=== PATIENT | male | born 1960 | race African-American/Black ===

== ENCOUNTER 2017-07-02 20:57 | Observation (INO) | payer OTHER ==
[2017-07-02] MEDS ORDERED: NITROGLYCERIN OINT 1 INCH/GM PACKET TOPICAL STA (21:22)
[2017-07-02] MEDS ORDERED: ASPIRIN 81 MG PO STA (21:22)
--- NOTE | 2017-07-02 21:25 | ED ---
General Adult HPI - General Chief complaint: Chest Pain Stated complaint: Chest Pain Time Seen by Provider: 07/02/17 21:10 Source: patient, EMS, RN notes reviewed Mode of arrival: EMS Limitations: no limitations - History of Present Illness Initial comments: Patient is a pleasant 56-year-old male presenting to the emergency department chest discomfort. Patient has had several episodes over the past couple of days. Discomfort feels he can ache. Discomfort has been mostly mild and is extremely mild at this point, rated 1/10. Patient has been taking some nitroglycerin with improvement of symptoms. Symptoms do seem to be exertional. No associated dyspnea or nausea or diaphoresis. Patient does have a cardiac history of with stent and is unclear if symptoms feel similar or not. Patient is currently at [facility] for rehab for cocaine and heroin use. - Related Data Home Medications Medication Instructions Recorded Confirmed Acetaminophen Tab [Tylenol Tab] 650 mg PO Q4H PRN 07/02/17 07/02/17 Calcium 1000mg/Magnesium 500mg 1 tab PO TID PRN 07/02/17 07/02/17 Clopidogrel [Plavix] 75 mg PO HS@2200 07/02/17 07/02/17 Multivitamins, Thera [Multivitamin 1 tab PO DAILY 07/02/17 07/02/17 (formulary)] Ondansetron HCl [Zofran] 8 mg PO Q6H PRN 07/02/17 07/02/17 Ondansetron [Zofran] 4 mg IM Q6H PRN 07/02/17 07/02/17 Ranitidine HCl [Zantac] 150 mg PO HS@2200 07/02/17 07/02/17 Thiamine [Vitamin B-1] 100 mg PO DAILY 07/02/17 07/02/17 amLODIPine [Norvasc] 10 mg PO DAILY@0600 07/02/17 07/02/17 busPIRone HCl [Buspar] 10 mg PO TID PRN 07/02/17 07/02/17 traZODone HCL 50 - 150 mg PO HS 07/02/17 07/02/17 Allergies Allergy/AdvReac Type Severity Reaction Status Date / Time No Known Allergies Allergy Verified 07/02/17 21:06 Review of Systems ROS Statement: Those systems with pertinent positive or pertinent negative responses have been documented in the HPI. ROS Other: All systems not noted in ROS Statement are negative. Constitutional: Denies: fever Eyes: Denies: eye pain ENT: Denies: ear pain Respiratory: Denies: cough Cardiovascular: Reports: chest pain Endocrine: Denies: fatigue Gastrointestinal: Denies: abdominal pain Genitourinary: Denies: dysuria Musculoskeletal: Denies: back pain Skin: Denies: rash Neurological: Denies: weakness Past Medical History Past Medical History: Hyperlipidemia, Hypertension, Myocardial Infarction ([place]) History of Any Multi-Drug Resistant Organisms: None Reported Past Surgical History: Heart Catheterization With Stent Past Psychological History: No Psychological Hx Reported Smoking Status: Current every day smoker Past Alcohol Use History: None Reported Past Drug Use History: Cocaine, Heroin General Exam Limitations: no limitations General appearance: alert, in no apparent distress Head exam: Present: atraumatic Eye exam: Present: normal appearance, PERRL ENT exam: Present: normal oropharynx Neck exam: Present: normal inspection Respiratory exam: Present: normal lung sounds bilaterally. Absent: chest wall tenderness Cardiovascular Exam: Present: regular rate, normal rhythm Expanded Peripheral pulses: 2+: Radial (R), Radial (L), Dorsalis Pedis (R), Dorsalis Pedis (L) GI/Abdominal exam: Present: soft. Absent: tenderness Extremities exam: Present: normal inspection. Absent: pedal edema, calf tenderness Neurological exam: Present: alert Psychiatric exam: Present: normal affect, normal mood Skin exam: Present: normal color Course Vital Signs 07/02/17 07/02/17 07/02/17 21:03 21:39 23:05 Temperature 99.2 F Pulse Rate 81 89 88 Respiratory 18 18 18 Rate Blood Pressure 164/101 159/106 162/96 O2 Sat by Pulse 97 98 99 Oximetry EKG Findings - EKG Comments: EKG Findings:: Normal sinus rhythm 77. NJ 178. QRS 88. QT 360. QTC 47. Normal axis. LVH. Nonspecific T waves. Some motion artifact is present. Medical Decision Making - Medical Decision Making Patient reevaluated and resting comfortably in bed. Patient did have some nausea however that improved with Zofran. Patient now complains of a headache that he has had in the back of his head and neck for the past several days. Patient requests medication for this and will be provided Tylenol. Patient was updated on results and plan. Case was crusted detail with practitioner Roman, who will admit for Dr. Weber, covering for hospital call. - Lab Data Result diagrams: 07/02/17 21:20 07/02/17 21:20 Lab Results 07/02/17 07/02/17 07/02/17 Range/Units 21:20 21:20 21:20 WBC 9.6 (3.8-10.6) k/uL RBC 5.19 (4.30-5.90) m/uL Hgb 13.4 (13.0-17.5) gm/dL Hct 42.0 (39.0-53.0) % MCV 80.9 (80.0-100.0) fL MCH 25.9 (25.0-35.0) pg MCHC 32.0 (31.0-37.0) g/dL RDW 15.3 (11.5-15.5) % Plt Count 291 (150-450) k/uL Neutrophils % 58 % Lymphocytes % 33 % Monocytes % 5 % Eosinophils % 1 % Basophils % 0 % Neutrophils # 5.6 (1.3-7.7) k/uL Lymphocytes # 3.2 (1.0-4.8) k/uL Monocytes # 0.5 (0-1.0) k/uL Eosinophils # 0.1 (0-0.7) k/uL Basophils # 0.0 (0-0.2) k/uL PT (9.0-12.0) sec INR (<1.2) APTT (22.0-30.0) sec Sodium 144 (137-145) mmol/L Potassium 4.1 (3.5-5.1) mmol/L Chloride 110 H (98-107) mmol/L Carbon Dioxide 25 (22-30) mmol/L Anion Gap 9 mmol/L BUN 25 H (9-20) mg/dL Creatinine 1.08 (0.66-1.25) mg/dL Est GFR (CKD-EPI)AfAm 88 (>60 ml/min/1.73 sqM) Est GFR (CKD-EPI)NonAf 76 (>60 ml/min/1.73 sqM) Glucose 86 (74-99) mg/dL Calcium 9.6 (8.4-10.2) mg/dL Magnesium 1.9 (1.6-2.3) mg/dL Total Bilirubin 0.4 (0.2-1.3) mg/dL AST 17 (17-59) U/L ALT 30 (21-72) U/L Alkaline Phosphatase 104 (38-126) U/L Total Creatine Kinase 107 (55-170) U/L CK-MB (CK-2) 0.9 (0.0-2.4) ng/mL CK-MB (CK-2) Rel Index 0.8 Troponin I <0.012 (0.000-0.034) ng/mL Total Protein 7.2 (6.3-8.2) g/dL Albumin 3.5 (3.5-5.0) g/dL 07/02/17 Range/Units 21:20 WBC (3.8-10.6) k/uL RBC (4.30-5.90) m/uL Hgb (13.0-17.5) gm/dL Hct (39.0-53.0) % MCV (80.0-100.0) fL MCH (25.0-35.0) pg MCHC (31.0-37.0) g/dL RDW (11.5-15.5) % Plt Count (150-450) k/uL Neutrophils % % Lymphocytes % % Monocytes % % Eosinophils % % Basophils % % Neutrophils # (1.3-7.7) k/uL Lymphocytes # (1.0-4.8) k/uL Monocytes # (0-1.0) k/uL Eosinophils # (0-0.7) k/uL Basophils # (0-0.2) k/uL PT 10.8 (9.0-12.0) sec INR 1.1 (<1.2) APTT 22.4 (22.0-30.0) sec Sodium (137-145) mmol/L Potassium (3.5-5.1) mmol/L Chloride (98-107) mmol/L Carbon Dioxide (22-30) mmol/L Anion Gap mmol/L BUN (9-20) mg/dL Creatinine (0.66-1.25) mg/dL Est GFR (CKD-EPI)AfAm (>60 ml/min/1.73 sqM) Est GFR (CKD-EPI)NonAf (>60 ml/min/1.73 sqM) Glucose (74-99) mg/dL Calcium (8.4-10.2) mg/dL Magnesium (1.6-2.3) mg/dL Total Bilirubin (0.2-1.3) mg/dL AST (17-59) U/L ALT (21-72) U/L Alkaline Phosphatase (38-126) U/L Total Creatine Kinase (55-170) U/L CK-MB (CK-2) (0.0-2.4) ng/mL CK-MB (CK-2) Rel Index Troponin I (0.000-0.034) ng/mL Total Protein (6.3-8.2) g/dL Albumin (3.5-5.0) g/dL - Radiology Data Radiology results: image reviewed (Chest x-ray shows no acute process.) Disposition Clinical Impression: Chest pain Disposition: ADMITTED IP TO THIS [facility] Referrals: None,Stated [Primary Care Provider] - 1-2 days Decision Time: 23:26
[2017-07-02 21:43] LABS: Basophils % (A) 0 %; Eosinophils # (A) 0.1 k/uL (0-0.7); Eosinophils % (A) 1 %; HGB 13.4 gm/dL (13.0-17.5); Lymphocytes # (A) 3.2 k/uL (1.0-4.8); Lymphocytes % (A) 33 %; MCH 25.9 pg (25.0-35.0); MCV 80.9 fL (80.0-100.0); Mean Platelet Volume 6.8; Monocytes # (A) 0.5 k/uL (0-1.0); Monocytes % (A) 5 %; Neutrophils # (A) 5.6 k/uL (1.3-7.7); Neutrophils % (A) 58 %; Platelet Count 291 k/uL (150-450); RBC 5.19 m/uL (4.30-5.90); RDW 15.3 % (11.5-15.5); WBC 9.6 k/uL (3.8-10.6)
--- NOTE | 2017-07-02 21:46 | XR ---
EXAMINATION: XR chest 2V DATE AND TIME: 07/02/2017 9:36 PM ORDERING PROVIDER: Gilbert Walker DO CLINICAL INDICATION: Chest Pain TECHNIQUE: PA and lateral COMPARISON: None. DESCRIPTION: The overlying soft tissues are prominent. Given this factor, the lungs appear to be clear. The pleural spaces are negative. The cardiac silhouette is not enlarged. The mediastinal and pleural silhouettes are unremarkable. The skeletal structures are intact without focal findings. IMPRESSION: NO ACUTE PROCESS.
[2017-07-02 21:52] LABS: Albumin 3.5 g/dL (3.5-5.0); Calcium 9.6 mg/dL (8.4-10.2); Magnesium 1.9 mg/dL (1.6-2.3); Potassium 4.1 mmol/L (3.5-5.1); Total Bilirubin 0.4 mg/dL (0.2-1.3); Total Protein 7.2 g/dL (6.3-8.2)
[2017-07-02 21:56] LABS: INR 1.1 (<1.2); Partial Thromboplastin Time 22.4 sec (22.0-30.0); Prothrombin Time 10.8 sec (9.0-12.0)
[2017-07-02 22:03] LABS: Creatine Kinase 107 U/L (55-170)
[2017-07-02 22:15] LABS: Creatine Kinase MB 0.9 ng/mL (0.0-2.4); Troponin I <0.012 ng/mL (0.000-0.034)
[2017-07-02] MEDS ORDERED: FAMOTIDINE 20 MG/2 ML VIAL IV STA (23:01)
[2017-07-02] MEDS ORDERED: ONDANSETRON 4 MG/2 ML VIAL IVP STA (23:01)
[2017-07-02] MEDS ORDERED: ACETAMINOPHEN TAB 500 MG TAB PO STA (23:24)
[2017-07-02] MEDS ORDERED: NITROGLYCERIN SL TABS 0.4 MG TAB SUBLINGUAL PRN (23:26)
[2017-07-02] MEDS ORDERED: ACETAMINOPHEN TAB 325 MG TAB PO PRN (23:31)
[2017-07-02] MEDS ORDERED: busPIRone HCl 10 MG TAB PO PRN (23:31)
[2017-07-03 01:27] VITALS: BMI 26.4
[2017-07-03] MEDS ORDERED: MELATONIN 5 MG TABLET PO PRN (01:35)
[2017-07-03] MEDS: NITROGLYCERIN OINT 1 INCH/GM PACKET TOPICAL SCH ×2 (02:30→06:21)
[2017-07-03] MEDS ORDERED: ONDANSETRON 4 MG/2 ML VIAL IVP PRN (02:51)
[2017-07-03] MEDS ORDERED: cloNIDine HCL 0.1 MG TAB PO PRN (03:34)
[2017-07-03 03:52] LABS: Cholesterol 226 mg/dL (<200); HDL Cholesterol 46 mg/dL (40-60); LDL Cholesterol,Calculated 146 mg/dL (0-99); Triglycerides 169 mg/dL (<150)
[2017-07-03] MEDS: METOCLOPRAMIDE 5 MG TAB PO SCH ×3 (03:56→12:37)
[2017-07-03 03:58] LABS: Creatine Kinase 116 U/L (55-170)
[2017-07-03 04:11] LABS: Troponin I <0.012 ng/mL (0.000-0.034)
[2017-07-03] MEDS: cloNIDine HCL 0.1 MG TAB PO PRN ×2 (04:35→08:52)
[2017-07-03] MEDS ORDERED: amLODIPine 10 MG TAB PO SCH (06:00)
[2017-07-03] MEDS ORDERED: METOCLOPRAMIDE 5 MG TAB PO SCH (07:30)
[2017-07-03 08:06] VITALS: RESP 18
[2017-07-03] MEDS ORDERED: ASPIRIN 325 MG TAB PO SCH (09:00)
[2017-07-03] MEDS ORDERED: ASPIRIN 81 MG PO SCH (09:00)
--- NOTE | 2017-07-03 09:08 | P.CRDCN ---
History of Present Illness Consult date: 07/03/17 Consult reason: chest pain History of present illness: Mr. Tabraes is a pleasant 56-year-old -[place] male past medical history significant for coronary artery disease, crack cocaine and heroin abuse , chronic tobacco abuse, dyslipidemia and hypertension. The specimen consultation for complaints of chest pain. He is currently undergoing rehabilitation at [facility]. He has last drug use was June 18. He states been having intermittent episodes of sharp chest pain in the midsternal region. The pain is mostly rest while he is sitting down. No specific aggravating or alleviating factors. He complains of associated mild shortness of breath. Denies palpitations, nausea, vomiting, dizziness, diaphoresis. He follows with a sugar cane planting equipment operator out of [facility] in [place] and had a full cardiac workup 2-3 months ago to include a stress test and echocardiogram. EKG on arrival reveals sinus mechanism with inferior T-wave inversions. There is no old for comparison. Chest x-ray is negative for acute cardiopulmonary process. Laboratory data reviewed, hemoglobin 13.4, platelets 291, potassium 4.1, magnesium 1.9, creatinine 1.08, cardiac enzymes negative 2, LDL 146, HDL 46, troponin was regimen 69 and Glucotrol 226. Current cardiac medications include Plavix 75 mg daily, amlodipine 10 mg daily, and Catapres 0.1 mg when necessary. Review of Systems At the time of my exam: CONSTITUTIONAL: Denies fever. Denies chills. EYES: Denies blurred vision. Denies vision changes. Denies eye pain. EARS, NOSE, MOUTH & THROAT: Denies headache. Denies sore throat. Denies ear pain. CARDIOVASCULAR: Denies chest pain. Denies shortness of breath. Denies orthopnea. Denies PND. Denies palpitations. RESPIRATORY: Denies cough. GASTROINTESTINAL: Denies abdominal pain. Denies diarrhea. Denies constipation. Denies nausea. Denies vomiting. MUSCULOSKELETAL: Denies myalgias. INTEGUMENTARY: Denies pruitis. Denies rash. NEUROLOGIC: Denies numbness. Denies tingling. Denies weakness. PSYCHIATRIC: Denies anxiety. Denies depression. ENDOCRINE: Denies fatigue. Denies weight change. Denies polydipsia. Denies polyurina. GENITOURINARY: Denies burning, hematuria or urgency with micturation. HEMATOLOGIC: Denies history of anemia. Denies bleeding. Past Medical History Past Medical History: Hyperlipidemia, Hypertension, Myocardial Infarction ([place]) Last Myocardial Infarction Date:: 2014 History of Any Multi-Drug Resistant Organisms: None Reported Past Surgical History: Heart Catheterization With Stent Past Anesthesia/Blood Transfusion Reactions: No Reported Reaction Date of Last Stent Placement:: 2014 Past Psychological History: No Psychological Hx Reported Smoking Status: Current every day smoker Past Alcohol Use History: None Reported Past Drug Use History: Cocaine, Heroin Additional Drug Use History / Comment(s): pt is currently at [facility] for rehab for crack cocaine, heroin and benzo abuse. start of rehab was 06/18/17. hx of snorting heroin {$40 worth} daily, smoking crack daily {$20 worth} and abusing xanax - Past Family History Father Family Medical History: Cancer Additional Family Medical History / Comment(s): lung cancer Medications and Allergies Home Medications Medication Instructions Recorded Confirmed Type Acetaminophen Tab [Tylenol Tab] 650 mg PO Q4H PRN 07/02/17 07/02/17 History Calcium 1000mg/Magnesium 500mg 1 tab PO TID PRN 07/02/17 07/02/17 History Clopidogrel [Plavix] 75 mg PO HS@2200 07/02/17 07/02/17 History Multivitamins, Thera [Multivitamin 1 tab PO DAILY 07/02/17 07/02/17 History (formulary)] Ondansetron HCl [Zofran] 8 mg PO Q6H PRN 07/02/17 07/02/17 History Ondansetron [Zofran] 4 mg IM Q6H PRN 07/02/17 07/02/17 History Ranitidine HCl [Zantac] 150 mg PO HS@2200 07/02/17 07/02/17 History Thiamine [Vitamin B-1] 100 mg PO DAILY 07/02/17 07/02/17 History amLODIPine [Norvasc] 10 mg PO DAILY@0600 07/02/17 07/02/17 History busPIRone HCl [Buspar] 10 mg PO TID PRN 07/02/17 07/02/17 History traZODone HCL 50 - 150 mg PO HS 07/02/17 07/02/17 History cloNIDine HCL [Catapres] 0.1 mg PO TID 07/03/17 07/03/17 History Allergies Allergy/AdvReac Type Severity Reaction Status Date / Time No Known Allergies Allergy Verified 07/02/17 21:06 Physical Exam Vitals: Vital Signs Temp Pulse Pulse Resp BP BP Pulse Ox 07/03/17 08:00 98.7 F 86 18 172/110 95 07/03/17 05:30 16 167/97 07/03/17 04:00 98.3 F 99 18 182/112 96 07/03/17 02:24 88 18 07/03/17 01:07 98.3 F 89 18 165/106 94 L 07/03/17 00:30 98.1 F 88 19 148/94 96 07/02/17 23:40 83 18 152/97 100 07/02/17 23:05 88 18 162/96 99 07/02/17 21:39 89 18 159/106 98 07/02/17 21:03 99.2 F 81 18 164/101 97 Intake and Output 07/02/17 07/03/17 07/03/17 22:59 06:59 14:59 Output Total 200 Balance -200 Output: Emesis 200 Other: Voiding Method Toilet # Voids 3 Weight 88.451 kg 88.451 kg Blood pressure 172/110 heart rate 86 afebrile maintaining oxygen saturation on room air GENERAL: This is a 56-year-old -[place] male in no apparent distress at the time of my examination. HEENT: Head is atraumatic, normocephalic. Pupils are equal, round. Sclerae anicteric. Conjunctivae are clear. Mucous membranes of the mouth are moist. Neck is supple. There is no jugular venous distention. No carotid bruit is heard. LUNGS: Clear to auscultation no wheezes, rales or rhonchi. No chest wall tenderness is noted on palpation or with deep breathing. HEART: Regular rate and rhythm without murmurs, rubs or gallops. S1 and S2 heard. ABDOMEN: Soft, nontender. Bowel sounds are heard. No organomegaly noted. EXTREMITIES: No evidence of peripheral edema and no calf tenderness noted. VASCULAR: Radial and dorsalis pedis pulses palpated, no evidence of clubbing. NEUROLOGIC: Patient is awake, alert and oriented x3. Results 07/02/17 21:20 07/02/17 21:20 Cardiac Enzymes 07/02/17 07/02/17 07/03/17 Range/Units 21:20 21:20 02:56 AST 17 (17-59) U/L CK-MB (CK-2) 0.9 1.0 (0.0-2.4) ng/mL Troponin I <0.012 <0.012 (0.000-0.034) ng/mL Coagulation 07/02/17 Range/Units 21:20 PT 10.8 (9.0-12.0) sec APTT 22.4 (22.0-30.0) sec Lipids 07/03/17 Range/Units 02:56 Triglycerides 169 H (<150) mg/dL Cholesterol 226 H (<200) mg/dL HDL Cholesterol 46 (40-60) mg/dL CBC 07/02/17 Range/Units 21:20 WBC 9.6 (3.8-10.6) k/uL RBC 5.19 (4.30-5.90) m/uL Hgb 13.4 (13.0-17.5) gm/dL Hct 42.0 (39.0-53.0) % Plt Count 291 (150-450) k/uL Comprehensive Metabolic Panel 07/02/17 Range/Units 21:20 Sodium 144 (137-145) mmol/L Potassium 4.1 (3.5-5.1) mmol/L Chloride 110 H (98-107) mmol/L Carbon Dioxide 25 (22-30) mmol/L BUN 25 H (9-20) mg/dL Creatinine 1.08 (0.66-1.25) mg/dL Glucose 86 (74-99) mg/dL Calcium 9.6 (8.4-10.2) mg/dL AST 17 (17-59) U/L ALT 30 (21-72) U/L Alkaline Phosphatase 104 (38-126) U/L Total Protein 7.2 (6.3-8.2) g/dL Albumin 3.5 (3.5-5.0) g/dL Current Medications Generic Name Dose Route Start Last Admin Trade Name Freq PRN Reason Stop Dose Admin Acetaminophen 650 mg 07/02/17 23:31 07/03/17 01:31 Tylenol Tab PO 650 mg Q4H PRN Administration Fever and/ or Pain Amlodipine Besylate 10 mg 07/03/17 06:00 07/03/17 01:31 Norvasc PO 10 mg DAILY@0600 DIVYA Administration Aspirin 325 mg 07/03/17 09:00 Aspirin PO DAILY [facility] Buspirone HCl 10 mg 07/02/17 23:31 Buspar PO TID PRN Anxiety Clonidine 0.1 mg 07/03/17 03:37 07/03/17 08:52 Catapres PO 0.1 mg Q4HR PRN Administration SBP over 170 - DBP over 90 Clopidogrel Bisulfate 75 mg 07/03/17 22:00 Plavix PO HS@2200 DIVYA Melatonin 5 mg 07/03/17 01:35 07/03/17 03:56 Melatonin PO 5 mg HS PRN Administration Insomnia Metoclopramide HCl 5 mg 07/03/17 03:38 07/03/17 03:56 Reglan PO 5 mg AC-TID DIVYA Administration Nitroglycerin 1 inch 07/03/17 02:00 07/03/17 06:21 Nitro-Bid Oint TOPICAL Not Given Q6HR [facility] Nitroglycerin 0.4 mg 07/02/17 23:26 Nitrostat SUBLINGUAL Q5M PRN Chest Pain Ondansetron HCl 4 mg 07/03/17 02:51 Zofran IVP Q6HR PRN Nausea And Vomiting Sodium Chloride 10 ml 07/03/17 09:00 Saline Flush IV BID [facility] Intake and Output 07/02/17 07/03/17 07/03/17 22:59 06:59 14:59 Output Total 200 Balance -200 Output: Emesis 200 Other: Voiding Method Toilet # Voids 3 Weight 88.451 kg 88.451 kg 07/02/17 21:20 07/02/17 21:20 Assessment and Plan Assessment: ASSESSMENT 1. Chest pain, atypical. An acute coronary event has been ruled out. The patient has underwent a full cardiac workup in the last few months. We will obtain those records. 2. Hypertension, accelerated 3. Dyslipidemia, uncontrolled 4. Chronic crack cocaine and heroin abuse 5. Chronic tobacco abuse PLAN Change his clonidine to scheduled 3 times a day 0.1 mg. Avoid when necessary administration of the stroke secondary to rebound hypertension. Add small dose aspirin 81 mg to his daily regimen. Discussed with him discontinuation of Plavix since his last stent was over 2 years ago. He said he would discuss this with his primary sugar cane planting equipment operator. Add atorvastatin 40 mg daily. Once his old records are reviewed, he will be stable for discharge if in fact his stress test was recent and negative as he states. Thank you kindly for this consultation. Follow-up with his primary sugar cane planting equipment operator upon discharge. Addendum: Stress test from his primary sugar cane planting equipment operator has been reviewed. He had a stress echocardiogram February 2017 was normal. He is stable for discharge from out perspective. Nurse Practitioner note has been reviewed, I agree with a documented findings and plan of care. Patient was seen and examined.
[2017-07-03] MEDS ORDERED: ATORVASTATIN 40 MG TAB PO SCH (09:15)
[2017-07-03] MEDS ORDERED: cloNIDine HCL 0.1 MG TAB PO SCH (09:15)
[2017-07-03 10:09] LABS: Creatine Kinase 108 U/L (55-170)
[2017-07-03 10:20] LABS: Creatine Kinase MB 1.1 ng/mL (0.0-2.4); Troponin I <0.012 ng/mL (0.000-0.034)
[2017-07-03 12:24] VITALS: BP 148/97; PULSE 81; TEMP 99.1
--- NOTE | 2017-07-03 17:47 | HP ---
HISTORY AND PHYSICAL This is a combination history and physical and discharge summary. HISTORY AND PHYSICAL/DISCHARGE SUMMARY: CHIEF COMPLAINT: Chest pain. HISTORY OF PRESENT ILLNESS: This 56-year-old gentleman with a past medical history of multiple medical problems including hypertension, hyperlipidemia, history of myocardial infarction, history of CAD/ stent being followed by primary physician elsewhere, was admitted from [facility]. The patient is at [facility] currently for crack cocaine and heroin as well as benzo usage. The patient also has a history of snorting heroin and smoking crack also and abusing Xanax also. The patient is complaining of chest pain which is felt in the left side and center part of the chest which is more like an ache. The patient also had a recent cardiac workup according to him and the troponins are negative. Patient being closely monitored at this time. There is no history of fever, rigors or chills. No history of headache, loss of consciousness, seizures at this time. PAST MEDICAL HISTORY: History of hypertension, hyperlipidemia, myocardial infarction, CAD, stent, history of recent cardiac workup. MEDICATIONS: 1. Catapres 0.1 p.o. t.i.d. 2. Trazodone 50-150 mg q.h.s. 3. Buspar 10 mg t.i.d. p.r.n. 4. Norvasc 10 mg p.o. daily p.r.n. 5. Vitamin B1 100 mg p.o. daily. 6. Zantac 150 mg p.o. q.h.s. 7. Zofran 4 mg IM q.6h p.r.n. 8. Zofran 8 mg q.6h. 9. Multivitamins 1 p.o. daily. 10.Plavix 75 mg q.h.s. 11.Calcium with magnesium one tablet p.o. daily. 12.Tylenol 650 q.4h. 13.Lipitor 40 mg p.o. daily. ALLERGIES: None. FAMILY HISTORY: History of lung cancer in the family. SOCIAL HISTORY: History of smoking. Polysubstance abuse. Crack cocaine and heroin as mentioned earlier. REVIEW OF SYSTEMS: ENT: No diminished vision or diminished hearing. Cardio system: As mentioned above. GI no nausea or vomiting. no dysuria. Nervous system: No numbness or weakness. ALLERGY/IMMUNOLOGY: As mentioned earlier. Musculoskeletal: As mentioned earlier. Hematology/Oncology: No history of anemia. Endocrine: No history of diabetes or hypothyroidism. CONSTITUTIONAL: As mentioned earlier. Dermatology: Negative. Rheumatology: Negative. Psychiatric: As mentioned earlier. PHYSICAL EXAMINATION: Alert and oriented times three. Pulse 86, blood pressure 148/97, respiration 18, temperature 99.1, pulse ox 97% on room air. HEENT: Conjunctivae normal. Oral mucosa moist. Neck is no jugular venous distention. No thyroid enlargement. No carotid bruit. No lymph node enlargement. Cardiovascular: S1-S2 muffled. No S3, no S4. Respiratory: Breath sounds diminished in the bases. No rhonchi. No crackles. ABDOMEN: Soft, nontender. No mass palpable. Legs no edema and no swelling. NERVOUS SYSTEM: Higher functions as mentioned earlier, moves all 4 limbs, no focal motor or sensory deficits. Lymphatics: No lymph nodes palpable in the neck, axillae or groin. Skin: No ulcer, rash or bleeding. Joints: Joints are no active deforming arthropathy. LAB: CBC within normal limits. Sodium 140, potassium 4.1. Triglycerides are 169. Cholesterol is 220, LDL is 146. ASSESSMENT: 1. Chest pain. Myocardial infarction ruled out, possible musculoskeletal. 2. History of coronary artery disease/stent. 3. Hypertension. 4. Hyperlipidemia. 5. History of nicotine dependence. 6. History of polysubstance abuse. RECOMMENDATIONS AND DISCUSSION: In this 56-year-old gentleman who presented with multiple medical issues at this time I recommend to continue current medications and symptomatic treatment. Otherwise at this time I recommend resume the home medications including Lipitor, otherwise advised close follow up with primary physician. See orders for details. The patient is being cleared for discharge by Cardiology. Otherwise continue to monitor. Recommend follow up with primary physician and Cardiology in the outpatient setting. MMODL / IJN: [id number] /
[2017-07-03] MEDS ORDERED: CLOPIDOGREL 75 MG TAB PO SCH (22:00)
== END 2017-07-03 16:00 | disposition home or self-care (01) ==
LOC: EC 20:57 → 3OBS 23:26
PROVIDERS: ADMIT Internal Medicine; ATTEND Internal Medicine
DX: R07.89 Other chest pain (principal); I25.10 Atherosclerotic heart disease of native coronary artery without angina pectoris; I10 Essential (primary) hypertension; E78.5 Hyperlipidemia, unspecified; I25.2 Old myocardial infarction; Z95.5 Presence of coronary angioplasty implant and graft; F17.200 Nicotine dependence, unspecified, uncomplicated; F11.10 Opioid abuse, uncomplicated; F14.10 Cocaine abuse, uncomplicated; F13.10 Sedative, hypnotic or anxiolytic abuse, uncomplicated; Z79.02 Long term (current) use of antithrombotics/antiplatelets; Z79.899 Other long term (current) drug therapy; Z80.1 Family history of malignant neoplasm of trachea, bronchus and lung
CPT/HCPCS: 96374 ×2; 96375 ×2; 99285 ×2; 36415; 93005; 80061; 80053; 82550 ×2; 82553 ×2; 83735; 84484 ×2; 85025; 85610; 85730; 71046; G0378 ×2; J2405